=== PATIENT | male | born 1995 | race African-American/Black ===

== ENCOUNTER 2021-05-30 12:14 | Emergency (ER) | payer SELFPAY ==
--- NOTE | 2021-05-30 14:53 | ER ---
Nurse's Notes [facility] Name: Jeremy Bose Jr Age: 25 yrs Sex: Male : 1995 Arrival Date: 05/30/2021 Time: 12:14 Bed Waiting Private MD: Diagnosis: Pain in right toe(s) Presentation: 05/30 12:52 Chief complaint: Patient states: Middle toe on right foot hurting x 2 days, denies jl7 trauma. Coronavirus screen: Client denies travel out of the [place] in the last 14 days. At this time, the client does not indicate any symptoms associated with coronavirus-19. Ebola Screen: No symptoms or risks identified at this time. Initial Sepsis Screen: Does the patient meet any 2 criteria? No. Patient's initial sepsis screen is negative. Does the patient have a suspected source of infection? No. Patient's initial sepsis screen is negative. Risk Assessment: Do you want to hurt yourself or someone else? Patient reports no desire to harm self or others. Onset of symptoms was May 28, 2021. 12:52 Method Of Arrival: Ambulatory jl7 12:52 Acuity: MENG 4 jl7 Triage Assessment: 12:54 General: Appears in no apparent distress. uncomfortable, Behavior is calm, cooperative, jl7 appropriate for age. Pain: Complains of pain in right third toe. Historical: - Allergies: 12:54 No Known Allergies; jl7 - Home Meds: 12:54 None [Active]; jl7 - PMHx: 12:54 None; jl7 - Immunization history:: Client reports having NOT received the Covid vaccine. - Social history:: Smoking status: Patient denies any tobacco usage or history of. Screenin:30 Abuse screen: Denies threats or abuse. Denies injuries from another. Nutritional jl7 screening: No deficits noted. Tuberculosis screening: No symptoms or risk factors identified. Fall Risk None identified. Vital Signs: 12:52 BP 147 / 86; Pulse 52; Resp 17; Temp 98.3; Pulse Ox 97% ; Pain 9/10; jl7 ED Course: 12:14 Patient arrived in ED. as 12:54 Triage completed. jl7 12:54 [facility] Waters [facility]C [facility] kb 12:54 Javier Resendiz MD is Attending Physician. kb 12:54 Arm band placed on right wrist. jl7 14:00 Patient has correct armband on for positive identification. jl7 14:02 Foot Right 3 View XRAY In Process Unspecified. EDMS 15:53 No provider procedures requiring assistance completed. Patient did not have IV access jl7 during this emergency room visit. Administered Medications: No medications were administered Outcome: 14:53 Discharge ordered by . kb 15:53 Discharged to home ambulatory. jl7 15:53 Condition: stable 15:53 Discharge instructions given to patient, Instructed on discharge instructions, follow up and referral plans. medication usage, Demonstrated understanding of instructions, follow-up care, medications, Prescriptions given X 1. 15:54 Patient left the ED. jl7 Signatures: Dispatcher [employer] EDArlene Murguia, CIVIL DEFENSE DIRECTOR-C CIVIL DEFENSE DIRECTOR-Cyndee Hughes Jahala, RN RN jl7
--- NOTE | 2021-05-30 14:53 | EDPHYS ---
Physician Documentation [facility] Name: Jeremy Bose Jr Age: 25 yrs Sex: Male : 1995 Arrival Date: 05/30/2021 Time: 12:14 Bed Waiting Private MD: QUAN Physician Javier Resendiz HPI: 05/30 14:51 This 25 yrs old Black Male presents to ER via Ambulatory with complaints of Toe Injury. kb 14:51 The patient has not recently seen a physician. kb 14:52 The patient presents with pain, tenderness. The complaints affect the right foot. kb Context: The problem was sustained at home, resulted from an unknown cause, the patient can fully bear weight, the patient is able to ambulate. Onset: The symptoms/episode began/occurred yesterday. Modifying factors: The symptoms are alleviated by nothing, the symptoms are aggravated by movement. Associated signs and symptoms: The patient has no apparent associated signs or symptoms. Severity of symptoms: At their worst the symptoms were moderate, in the emergency department the symptoms are unchanged. The patient has not experienced similar symptoms in the past. Patient complains of pain to right third toe that started yesterday after running around playing with dog outside.. Historical: - Allergies: 12:54 No Known Allergies; jl7 - Home Meds: 12:54 None [Active]; jl7 - PMHx: 12:54 None; jl7 - Immunization history:: Client reports having NOT received the Covid vaccine. - Social history:: Smoking status: Patient denies any tobacco usage or history of. ROS: 14:50 Constitutional: Negative for fever, chills, and weight loss. kb 14:50 MS/extremity: Positive for pain, tenderness, of the right third toe. 14:50 All other systems are negative. Exam: 14:50 Constitutional: This is a well developed, well nourished patient who is awake, alert, kb and in no acute distress. Head/Face: Normocephalic, atraumatic. ENT: Moist Mucous membranes Respiratory: Respirations even and unlabored. No increased work of breathing, no retractions or nasal flaring. Skin: Warm, dry with normal turgor. Normal color. Neuro: Awake and alert, GCS 15, oriented to person, place, time, and situation. Moves all extremities. Normal gait. Psych: Awake, alert, with orientation to person, place and time. Behavior, mood, and affect are within normal limits. 14:50 Musculoskeletal/extremity: Extremities: grossly normal except: noted in the right third toe: pain, tenderness, ROM: limited active range of motion due to pain, in the right third toe, Circulation is intact in all extremities. Sensation intact. Weight bearing: able to fully bear weight. Vital Signs: 12:52 BP 147 / 86; Pulse 52; Resp 17; Temp 98.3; Pulse Ox 97% ; Pain 9/10; jl7 MDM: 12:55 Patient medically screened. kb 14:50 Data reviewed: vital signs, nurses notes. Data interpreted: Pulse oximetry: on room air kb is 97 %. Interpretation: normal. Counseling: I had a detailed discussion with the patient and/or guardian regarding: the historical points, exam findings, and any diagnostic results supporting the discharge/admit diagnosis, radiology results, the need for outpatient follow up, a family practitioner, to return to the emergency department if symptoms worsen or persist or if there are any questions or concerns that arise at home. 05/30 12:55 Order name: Foot Right 3 View XRAY kb Administered Medications: No medications were administered Disposition: 05/31 07:35 Co-signature as Attending Physician, Javier Resendiz MD I agree with the assessment and josy plan of care. Disposition Summary: 05/30/21 14:53 Discharge Ordered Location: Home kb Condition: Stable kb Diagnosis - Pain in right toe(s) kb Followup: kb - With: Emergency Department - When: As needed - Reason: Worsening of condition Followup: kb - With: Private Physician - When: 2 - 3 days - Reason: Recheck today's complaints, Continuance of care, Re-evaluation by your physician Discharge Instructions: - Discharge Summary Sheet kb - Musculoskeletal Pain kb Forms: - Medication Reconciliation Form kb - Thank You Letter kb - Antibiotic Education kb - Prescription Opioid Use kb Prescriptions: - Diclofenac Sodium 75 mg Oral tablet,delayed release (DR/EC) - take 1 tablet by ORAL route 2 times per day As needed; 30 tablet; Refills: 0, kb Product Selection Permitted Signatures: Dispatcher [employer] Arlene Flynn, ZEN COTTO-Javier Padilla MD MD cha Leal, Jahala, RN RN jl7
[2021-05-30 16:00] VITALS: BP 147/86; TEMP 98.3; O2SAT 97
--- NOTE | 2021-05-30 16:32 | RAD REPORT ---
EXAM DESCRIPTION: RAD - Foot Right 3 View - 05/30/2021 2:02 pm CLINICAL HISTORY: PAIN COMPARISON: <Comparisons> FINDINGS: No right foot fracture malalignment identified. Bipartite medial sesamoid IMPRESSION: No right foot fracture identified. No that stress fractures may not be apparent on initi al radiography. MRI is more sensitive in the acute phase.
== END 2021-05-30 15:54 | disposition home or self-care (01) ==
LOC: ER 12:14
DX: M79.674 Pain in right toe(s) (principal)
CPT/HCPCS: 99283